=== PATIENT | male | born 1975 | race Caucasian/White ===

== ENCOUNTER 2022-09-14 16:32 | Emergency (ER) | payer OTHER, SELFPAY ==
[2022-09-14 17:36] VITALS: BP 130/83; PULSE 79; RESP 20; TEMP 36.6; O2SAT 100; BMI 26.6
--- NOTE | 2022-09-14 17:40 | ED_ITS ---
HPI - General Adult General Chief complaint: Extremity Injury, Lower Stated complaint: Knee pain/ med refill Time Seen by Provider: 09/14/22 17:40 Source: patient and RN notes reviewed Mode of arrival: ambulatory Limitations: no limitations History of Present Illness HPI narrative: [age] year male with past medical history significant for osteoarthritis presents for evaluation of right knee pain and foot pain. Patient reports that his pain has been on off for a week but is worse at the end the day after walking a lot. He reports that he went to [facility] last week and was given 2 prescriptions but ?it was only for 5 days. ? He denies any trauma to the area or injury Patient reports that he is new to the area and does not have a primary appointment until early September Denies any fevers, chills Related Data Previous Rx's Medication Instructions Recorded acetaminophen 500 mg tablet 500 mg PO QID PRN pain #90 tabs 09/14/22 omeprazole 20 mg capsule,delayed 20 mg PO DAILY #30 caps 09/14/22 release sucralfate 1 gram tablet 1 g PO QID #90 tabs 09/14/22 tramadol 50 mg tablet 50 mg PO Q6H PRN severe pain 09/14/22 (scale score 7-10) #14 tabs Allergies Allergy/AdvReac Type Severity Reaction Status Date / Time Penicillins Allergy Anaphylaxis Verified 09/14/22 17:42 Review of Systems Constitutional: Constitutional: Reports as per HPI, Denies chills, Denies fatigue and Denies fever(s) Cardiovascular: Cardiovascular: Denies chest pain and Denies dyspnea Respiratory: Respiratory: Denies cough and Denies dyspnea Gastrointestinal: Gastrointestinal: Denies abdominal pain, Denies constipation and Denies vomiting Genitourinary: Genitourinary: Denies difficulty urinating and Denies dysuria Musculoskeletal: Musculoskeletal: Reports arthralgias and Reports joint swelling Neurologic: Denies focal weakness Endocrine: Endocrine: Denies fatigue Physical Exam ED Vital Signs: Vital Signs - 24 hr 09/14/22 17:36 Temperature 97.9 F Pulse Rate 79 Respiratory Rate 20 Blood Pressure 130/83 Pulse Oximetry 100 Oxygen Delivery Method Room Air BMI result Body Mass Index 26.6 Const General: healthy appearing, comfortable, no acute distress, alert and awake Nutritional Appearance: well nourished Orientation/consciousness: patient oriented x3 HENMT Head: Yes normocephalic and Yes atraumatic Throat: Yes posterior oropharynx normal Eyes Eyelids: Yes eyelids normal Conjunctivae: conjunctivae normal Sclerae: sclerae normal Corneas: corneas normal Pupils: Equal, round and reactive pupils present EOM: EOMs intact bilaterally Neck Neck: Yes full ROM Resp Effort & Inspection: normal respiratory effort, able to speak in complete sentences, no audible wheezes and not labored Auscultation: clear to auscultation bilaterally Skin General skin exam: no rashes or lesions noted and elasticity normal Neuro General: patient oriented x3 Cranial nerves: Yes Equal, round and reactive pupils present and Yes Bilaterally intact EOM present Cognition (Neuro): normal cognition Extrem Other: Moving all extremities well without any obvious deformities. Patient tender to palpation at the right 1st MTP joint. There is no erythema, edema, no ecchymosis Medical Decision Making Medical Decision Making MDM Narrative: 47-year-old male presents for evaluation to the ER for foot and knee pain. He has no injury no deformity to either joint. He reports chronic arthritis. He is unable to he and his cm PCP for at least 2 more weeks. He is also requesting refills of his cyclist and Prilosec. I gave him a short course of tramadol. He will be treated with Tylenol for his additional pain given that he can not take NSAIDs with history of ulcers. I will refill his omeprazole and Carafate Differential Diagnosis Chronic pain Arthritis Osteoarthritis Gout Foot sprain Knee sprain GERD Gastritis Discharge Plan Discharge Clinical Impression: Foot pain, right Patient Disposition: Home, Self-Care Additional Instructions: Take Tylenol to 4 times daily as needed for pain. He may use tramadol for more severe, breakthrough pain. This may make you sleepy, do not drink alcohol or drive after taking it. Use Carafate and omeprazole as directed Prescriptions: New acetaminophen 500 mg tablet 500 mg PO QID PRN (Reason: pain) Qty: 90 0RF sucralfate 1 gram tablet 1 g PO QID Qty: 90 0RF omeprazole 20 mg capsule,delayed release(DR/EC) 20 mg PO DAILY Qty: 30 0RF tramadol 50 mg tablet 50 mg PO Q6H PRN (Reason: severe pain (scale score 7-10)) Qty: 14 0RF
== END 2022-09-14 19:12 | disposition home or self-care (01) ==
LOC: HO.ED 18:06
PROVIDERS: Emergency Provider Internal Medicine
DX: M79.671 Pain in right foot (principal); M25.561 Pain in right knee; Z79.899 Other long term (current) drug therapy
CPT/HCPCS: 99282; 99283